=== PATIENT | male | born 1975 | race Caucasian/White ===

== ENCOUNTER → 2023-07-17 17:32 | Outpatient (REF) | payer OTHER, SELFPAY | LOC: HWRAD 17:32 | PROVIDERS: ATTENDING PHYSICIAN Family Medicine | DX: M54.2 Cervicalgia (principal) | CPT/HCPCS: 72052 ==

== ENCOUNTER → 2023-07-30 18:01 | Outpatient (REF) | payer OTHER, SELFPAY | LOC: PAVMRI 18:01 | PROVIDERS: ATTENDING PHYSICIAN Family Medicine | DX: M25.512 Pain in left shoulder (principal); M79.2 Neuralgia and neuritis, unspecified; Z87.828 Personal history of other (healed) physical injury and trauma | CPT/HCPCS: 72141 ==

== ENCOUNTER 2024-11-09 06:28 | Day surgery (SDC) | payer OTHER, SELFPAY | END 2024-11-09 13:56 | disposition home or self-care (01) | LOC: GI 06:28 | PROVIDERS: ATTENDING PHYSICIAN Internal Medicine Gastroenterology | DX: Z12.11 Encounter for screening for malignant neoplasm of colon (principal); R19.5 Other fecal abnormalities; K64.0 First degree hemorrhoids; D12.5 Benign neoplasm of sigmoid colon; D12.0 Benign neoplasm of cecum | CPT/HCPCS: 45385; 45381; 45380; 88305 ==